=== PATIENT | female | born 1965 | race Caucasian/White ===

== ENCOUNTER 2016-09-07 13:13 | Emergency (ER) | payer OTHER ==
[2016-09-07] MEDS ORDERED: oxyCODONE/Acetamin 5/325 MG* TAB PO ONE (13:47)
--- NOTE | 2016-09-07 13:49 | ED ---
Lower Extremity - HPI Summary HPI Summary: 50F presents with left ankle pain since yesterday s/p fall. She states that it was dark and that she tripped and fell down to stairs. She bumped her head and landed on her left shoulder and ankle. She denies any headache, vomiting, or change in vision. She states she was nauseous due to the pain yesterday. She denies any LOC. She states she has not ambulate on it yet. She states that there is swelling to the ankle and that her pinky toe also hurts. She does not remember exactly how she landed and if she turned her ankle or not. She denies any numbness or tingling. She is not on any blood thinners. She is not broken this foot before. She denies any knee pain. - History of Current Complaint Chief Complaint: EDExtremityLower Stated Complaint: LEFT FOOT AND ANKLE PAIN Time Seen by Provider: 09/07/16 13:32 Pain Intensity: 10 - Allergies/Home Medications Allergies/Adverse Reactions: Allergies Allergy/AdvReac Type Severity Reaction Status Date / Time No Known Allergies Allergy Verified 09/07/16 13:23 PMH/Surg Hx/FS Hx/Imm Hx Endocrine/Hematology History: Denies: Hx Diabetes, Hx Thyroid Disease Cardiovascular History: Denies: Hx Hypertension Respiratory History: Denies: Hx Asthma, Hx Chronic Obstructive Pulmonary Disease (COPD) GI History: Reports: Hx Ulcer History: Denies: Hx Dialysis, Hx Renal Disease - Cancer History Hx Chemotherapy: No Hx Radiation Therapy: No - Surgical History Surgery Procedure, Year, and Place: hysterectomy, nelly,appendectomy, right knee , right shoulder,gastric bypass, csection, Infectious Disease History: No Infectious Disease History: Denies: Hx Clostridium Difficile, Hx Hepatitis, Hx Human Immunodeficiency Virus (HIV), Hx of Known/Suspected MRSA, Hx Shingles, Hx Tuberculosis, Hx Known/ Suspected VRE, Hx Known/Suspected VRSA, History Other Infectious Disease, Traveled Outside the [place] in Last 30 Days - Family History Known Family History: Positive: Cardiac Disease, Other - copd - Social History Alcohol Use: Occasionally Substance Use Type: Reports: None Smoking Status (MU): Current Some Day Smoker Type: Cigarettes Amount Used/How Often: 1 pack per week Review of Systems Negative: Fever Negative: Chest Pain Negative: Shortness Of Breath Positive: Myalgia - left ankle and foot pain Negative: Headache All Other Systems Reviewed And Are Negative: Yes Physical Exam Triage Information Reviewed: Yes Vital Signs On Initial Exam: Initial Vitals Temp Pulse Resp BP Pulse Ox 99.6 F 84 18 134/86 100 09/07/16 13:23 09/07/16 13:23 09/07/16 13:23 09/07/16 13:23 09/07/16 13:23 Vital Signs Reviewed: Yes Appearance: Positive: Well-Appearing Skin: Positive: Warm, Dry Head/Face: Positive: Normal Head/Face Inspection, Other - no step off, raccoon eyes, saldana sign Eyes: Positive: Normal, EOMI, NOAM, Conjunctiva Clear ENT: Positive: Normal ENT inspection, Pharynx normal, TMs normal Respiratory/Lung Sounds: Positive: Clear to Auscultation, Breath Sounds Present Cardiovascular: Positive: Normal, RRR Musculoskeletal: Positive: Limited @ - ankle and toes left, Edema Left - ankle mild, Other - tenderness over lateral malleolus, tender over 5th metatarsal, good pulses, capillary refill <2secs, nontender knee Neurological: Positive: Sensory/Motor Intact, Alert, Oriented to Person Place, Time, CN Intact II-III - Sterling Coma Scale Best Eye Response: 4 - Spontaneous Best Motor Response: 6 - Obeys Commands Best Verbal Response: 5 - Oriented Procedures - Splinting Location: left foot Hand-Made Type: fiberglass Splint: posterior walking Pre-Proc Neuro Vasc Exam: normal Post-Proc Neuro Vasc Exam: normal Diagnostics - Vital Signs Vital Signs Temp Pulse Resp BP Pulse Ox 09/07/16 13:23 99.6 F 84 18 134/86 100 - Laboratory Lab Statement: Any lab studies that have been ordered have been reviewed, and results considered in the medical decision making process. - Radiology foot Xray Interpretation: Positive (See Comments) - IMPRESSION: Nonarticular diaphyseal to distal metaphyseal fracture of the fifth metatarsal with mild one cortex width medial displacement and foreshortening. Radiology Interpretation Completed By: Radiologist ankle, leg Xray Interpretation: Positive (See Comments) - REPORT AND IMPRESSION: Significant soft tissue swelling over the lateral malleolus. Negative for fracture or articular alignment about the ankle. Large plantar fascia origin bone spur. Soft tissue swelling most prominent over the lateral malleolus. Radiology Interpretation Completed By: Radiologist Lower Extremity Course/Dx - Course Course Of Treatment: 50F presents with left foot and ankle pain since last night. She states she fell down some stairs because it was dark. She is complaining of pain to her pinky toe and her ankle. She has not ambulated yet. She took ibuprofen for pain. on exam mild edema noted of ankle, tender over left 5th metatarsal. xray postive for 5th metatarsal fracture with a little displacement, placed in posteroir walking splint, gave pain meds and told to follow up with ortho. patient understands and agrees with plan - Diagnoses Differential Diagnosis/HQI/PQRI: Positive: Fracture (Closed), Sprain, Strain Provider Diagnoses: Fracture of 5th metatarsal Discharge - Discharge Plan Condition: Good Disposition: HOME Prescriptions: oxyCODONE/Acetamin 5/325 MG* [Percocet 5/325 TAB*] 1 tab PO Q6H PRN #16 tab MDD 4 PRN Reason: Pain Patient Education Materials: Foot Fracture in Adults (ED) Referrals: Olivier Lara MD [Medical Doctor] - Chandrika Stubbs PA [Primary Care Provider] - Additional Instructions: keep splint on area, use crutches to get around Ice, elevate Take Tylenol or ibuprofen for pain every 6 hours, use narcotic for break through pain inc fiber Follow up with ortho Return to ED if develop any numbness, tingling, or any new or worsening symptoms
--- NOTE | 2016-09-07 14:29 | RAD ---
Indication: Pain post fall last night. Comparison: LEFT ankle of the same date. Technique: AP and lateral views LEFT lower leg. REPORT AND IMPRESSION: Negative for fracture or articular malalignment. Soft tissue swelling over the lateral malleolus. Proximal medial subcutaneous tissue plane varicose veins.
--- NOTE | 2016-09-07 14:32 | RAD ---
Indication: Pain post fall. Comparison: LEFT ankle the same date. Technique: AP, lateral, and oblique views LEFT foot. Report: Nonarticular diaphyseal to distal metaphyseal fracture of the fifth metatarsal with mild one cortex width medial displacement and foreshortening. Negative for additional fracture or articular malalignment. Large plantar fascia origin bone spur. Soft tissue swelling most prominent over the lateral aspect of the forefoot. IMPRESSION: Nonarticular diaphyseal to distal metaphyseal fracture of the fifth metatarsal with mild one cortex width medial displacement and foreshortening.
--- NOTE | 2016-09-07 14:33 | RAD ---
Indication: Pain post fall. Fifth metatarsal fracture. Comparison: LEFT lower leg and foot exams of the same date. Technique: AP, mortise, and lateral views LEFT ankle. REPORT AND IMPRESSION: Significant soft tissue swelling over the lateral malleolus. Negative for fracture or articular alignment about the ankle. Large plantar fascia origin bone spur. Soft tissue swelling most prominent over the lateral malleolus.
[2016-09-07 15:46] VITALS: BP 108/72
== END 2016-09-07 15:45 | disposition home or self-care (01) ==
LOC: ED 13:13
DX: S92.352A Displaced fracture of fifth metatarsal bone, left foot, initial encounter for closed fracture (principal); F17.210 Nicotine dependence, cigarettes, uncomplicated; W18.09XA Striking against other object with subsequent fall, initial encounter; Y92.9 Unspecified place or not applicable; W10.9XXA Fall (on) (from) unspecified stairs and steps, initial encounter
CPT/HCPCS: 99282; A9270-GY

== ENCOUNTER 2017-08-19 13:07 | Emergency (ER) | payer OTHER ==
--- NOTE | 2017-08-19 13:15 | ED ---
GI/ HPI - History of Current Complaint Time Seen by Provider: 08/19/17 13:11 Stated Complaint: BLOOD IN URINE - Allergy/Home Medications Allergies/Adverse Reactions: Allergies Allergy/AdvReac Type Severity Reaction Status Date / Time No Known Allergies Allergy Verified 09/07/16 13:23 PMH/Surg Hx/FS Hx/Imm Hx Endocrine/Hematology History: Denies: Hx Diabetes, Hx Thyroid Disease Cardiovascular History: Denies: Hx Hypertension Respiratory History: Denies: Hx Asthma, Hx Chronic Obstructive Pulmonary Disease (COPD) GI History: Reports: Hx Ulcer History: Denies: Hx Dialysis, Hx Renal Disease - Cancer History Hx Chemotherapy: No Hx Radiation Therapy: No - Surgical History Surgery Procedure, Year, and Place: hysterectomy, nelly,appendectomy, right knee , right shoulder,gastric bypass, csection, Infectious Disease History: Denies: Hx Clostridium Difficile, Hx Hepatitis, Hx Human Immunodeficiency Virus (HIV), Hx of Known/Suspected MRSA, Hx Shingles, Hx Tuberculosis, Hx Known/ Suspected VRE, Hx Known/Suspected VRSA, History Other Infectious Disease, Traveled Outside the [place] in Last 30 Days - Family History Known Family History: Positive: Cardiac Disease, Other - copd - Social History Alcohol Use: Occasionally Substance Use Type: Reports: None Smoking Status (MU): Current Some Day Smoker Type: Cigarettes Amount Used/How Often: 1 pack per week Discharge - Discharge Plan Referrals: Concetta Caldera [Primary Care Provider] -
[2017-08-19 13:20] VITALS: BP 112/72
[2017-08-19] MEDS ORDERED: Ibuprofen TAB* 600 MG PO ONE (13:35)
--- NOTE | 2017-08-19 13:38 | UC ---
Complaint Female HPI - HPI Summary HPI Summary: 51 year old female here with abdominal pain and hematuria. She reports her symptoms started yesterday and noticed some blood when she wipes. She is unsure if blood is coming from the vagina or urethra. She denies dysuria, hemtauria or any other complaints. Not sexually active. Last intercourse was about 6 months ago. Does not want to be tested for STD/STI. Reports normal bm and denies hematochezia. - History Of Current Complaint Chief Complaint: UCGU Stated Complaint: BLOOD IN URINE Time Seen by Provider: 08/19/17 13:11 Hx Obtained From: Patient Hx Last Menstrual Period: menopausal Onset/Duration: Gradual Onset Timing: Constant Severity Initially: Mild Pain Intensity: 9 Character: Sharp Aggravating Factor(s): Movement Alleviating Factor(s): Nothing Associated Signs And Symptoms: Positive: Back Pain. Negative: Vaginal Bleeding/ Discharge, Vaginal Discharge, Genital Swelling - Allergies/Home Medications Allergies/Adverse Reactions: Allergies Allergy/AdvReac Type Severity Reaction Status Date / Time No Known Allergies Allergy Verified 09/07/16 13:23 PMH/Surg Hx/FS Hx/Imm Hx Previously Healthy: No - H/o DVT - Surgical History Surgical History: Yes Surgery Procedure, Year, and Place: hysterectomy, nelly,appendectomy, right knee , right shoulder,gastric bypass, csection, - Family History Known Family History: Positive: Cardiac Disease, Other - copd - Social History Alcohol Use: Weekly Substance Use Type: None Smoking Status (MU): Current Some Day Smoker Type: Cigarettes Amount Used/How Often: 1 pack per week Review of Systems Constitutional: Negative Skin: Negative Eyes: Negative ENT: Negative Respiratory: Negative Cardiovascular: Negative Gastrointestinal: Negative Genitourinary: Other - hematuria vs. vaginal bleeding Motor: Negative Neurovascular: Negative Musculoskeletal: Negative Neurological: Negative Psychological: Negative All Other Systems Reviewed And Are Negative: Yes Physical Exam Triage Information Reviewed: Yes Appearance: Well-Appearing, No Pain Distress Vital Signs: Initial Vital Signs Temp 36.6 C 08/19/17 13:15 Pulse 84 08/19/17 13:15 Resp 18 08/19/17 13:15 BP 112/72 08/19/17 13:15 Pulse Ox 98 08/19/17 13:15 ENT Exam: Normal Respiratory Exam: Normal Cardiovascular Exam: Normal Abdominal Exam: Normal Abdomen Description: Negative: CVA Tenderness (R), CVA Tenderness (L), Distended - pelvic No cmt, no adnexal tenderness, mild blood noticed in the canal, Bilateral lower inguinal area discomfort but no tenderness or guarding on exam Musculoskeletal Exam: Normal Psychological Exam: Normal Complaint Female Dx - Differential Dx/Diagnosis Differential Diagnosis/HQI/PQRI: Cervicitis, Renal Colic, Sexually Transmitted Disease, Urinary Tract Infection Provider Diagnoses: Vaginal bleeding. Instructed patient for outpatient follow up with top case assembler. NSAID PRN. Return precautions or visit to the ED given Discharge - Discharge Plan Condition: Good Disposition: HOME Prescriptions: Ibuprofen TAB* [Motrin TAB* 400 MG] 400 mg PO Q6H PRN #20 tab PRN Reason: Pain Patient Education Materials: Pelvic Pain in Women (ED) Forms: *Work Release Referrals: Concetta Caldera [Primary Care Provider] - Katina Boone MD [Medical Doctor] -
== END 2017-08-19 14:03 | disposition home or self-care (01) ==
LOC: UCEAST 13:07
DX: N93.9 Abnormal uterine and vaginal bleeding, unspecified (principal); F17.210 Nicotine dependence, cigarettes, uncomplicated
CPT/HCPCS: 81003; 99212; A9270-GY; G0463